=== PATIENT | male | born 1990 | race Caucasian/White ===

== ENCOUNTER 2017-01-19 16:46 | Emergency (ER) | payer MEDICAID ==
[~2017-01-19] VITALS: Ht 167.6 cm; Wt 78.6 kg
[2017-01-19 16:49] VITALS: BP 140/81; PULSE 98; TEMP 97.8
[2017-01-19] MEDS ORDERED: BACTRIM DS 8001 TAB PO (18:24)
[2017-01-19] MEDS ORDERED: NORCO 325 MG-51 TAB PO (18:24)
== END 2017-01-19 19:00 | disposition home or self-care (01) ==
LOC: COL.ER 16:46
DX: L02.612 Cutaneous abscess of left foot (principal); Z23 Encounter for immunization; F17.210 Nicotine dependence, cigarettes, uncomplicated

== ENCOUNTER 2018-03-04 21:27 | Emergency (ER) | payer BC ==
[~2018-03-04] VITALS: Ht 167.6 cm; Wt 73.6 kg
[~2018-03-04 21:27] MED LIST: BACTRIM DS 8001 TAB PO; NORCO 325 MG-51 TAB PO
[2018-03-04 21:35] VITALS: BP 143/80; PULSE 82; TEMP 98.6
[2018-03-04] MEDS ORDERED: FLEXERIL 1010 MG/TAB PO (22:06)
== END 2018-03-04 22:48 | disposition home or self-care (01) ==
LOC: COL.ER 21:27
DX: M46.1 Sacroiliitis, not elsewhere classified (principal); F17.210 Nicotine dependence, cigarettes, uncomplicated
CPT/HCPCS: J1885

== ENCOUNTER 2018-05-04 02:10 | Emergency (ER) | payer MEDICAID ==
[~2018-05-04] VITALS: Ht 170.2 cm; Wt 63.6 kg
[~2018-05-04 02:10] MED LIST changes: +FLEXERIL 1010 MG/TAB PO
[2018-05-04 02:51] LABS: BASO % 0.4 % (0.0-2.0); EOS # 0.8 (0.0-0.7); EOS % 8.5 % (0-4.0); GRAN # 4.2 (1.4-6.5); GRAN % 46.6 % (42.2-75.2); LYMPH # 3.3 (1.2-3.4); LYMPH % 36.4 % (20.0-51.0); MEAN CELL VOLUME 87 fl (80.0-100.0); MEAN CORPUSCULAR HEMOGLOBIN 31 pg (27.0-31.0); MEAN CORPUSCULAR HGB CONC 36 g/dl (33.0-37.0); MEAN PLATELET VOLUME 10.7 fl (7.4-10.4); MONO # 0.7 (0.1-0.6); PLATELET COUNT 262 K/mm3 (130-400); REDCELL DISTRIBUTION WIDTH-CV 12.1 % (11.5-14.5)
[2018-05-04 03:02] LABS: ALBUMIN 4.3 gm/dL (3.5-5.0); BILIRUBIN,TOTAL 0.6 mg/dL (0.0-1.0); CALCIUM 9.4 mg/dL (8.4-10.2); CREATININE, serum 0.88 mg/dL (0.66-1.25); POTASSIUM 3.7 mmol/L (3.4-5.0); TOTAL PROTEIN 7.6 gm/dL (6.4-8.2)
[2018-05-04 05:39] LABS: ACETAMINOPHEN < 10 ug/mL (10-30); SALICYLATE < 1.0 mg/dL
[2018-05-04 06:03] LABS: TSH w REFLEX 0.903 uIU/mL (0.465-4.680)
[2018-05-04 11:32] LABS: COLLECTION METHOD CLEAN CATCH
[2018-05-04 11:48] LABS: MUCOUS Present /lpf; PH 5 (5-8); SQUAMOUS EPITHELIAL 0-2 /hpf; URINE APPEARANCE Clear; URINE BACTERIA None Seen /hpf; URINE BILIRUBIN Negative (NEGATIVE); URINE BLOOD Negative (NEGATIVE); URINE COLOR Yellow; URINE GLUCOSE Negative (NEGATIVE); URINE KETONE Negative (NEGATIVE); URINE LEUKOCYTE ESTERASE Negative (NEGATIVE); URINE NITRATE Negative (NEGATIVE); URINE PROTEIN(semi-quant) Negative (NEGATIVE); URINE RBC None Seen /hpf; URINE UROBILINOGEN Negative (NEGATIVE)
[2018-05-04 11:57] LABS: TRICYCLIC ANTIDEPRESS URINE NEGATIVE
[2018-05-04 17:07] VITALS: BP 90/50; PULSE 83; TEMP 98
== END 2018-05-04 17:08 | disposition home or self-care (01) ==
LOC: COL.ER 02:10
PROVIDERS: Emergency Medicine
DX: F15.10 Other stimulant abuse, uncomplicated (principal); F12.10 Cannabis abuse, uncomplicated; F14.10 Cocaine abuse, uncomplicated; R44.3 Hallucinations, unspecified; F17.210 Nicotine dependence, cigarettes, uncomplicated

== ENCOUNTER 2018-08-31 02:13 | Emergency (ER) | payer SELFPAY ==
[~2018-08-31] VITALS: Ht 167.6 cm; Wt 77.3 kg
[2018-08-31 02:18] VITALS: TEMP 97.1
[2018-08-31 03:22] LABS: BASO # 0.1 (0.0-0.2); BASO % 0.5 % (0.0-2.0); EOS # 1.2 (0.0-0.7); EOS % 9.1 % (0-4.0); GRAN # 7.3 (1.4-6.5); GRAN % 57.1 % (42.2-75.2); HEMATOCRIT 46.9 % (42.0-52.0); LYMPH # 3.4 (1.2-3.4); LYMPH % 26.4 % (20.0-51.0); MEAN CELL VOLUME 88 fl (80.0-100.0); MEAN CORPUSCULAR HEMOGLOBIN 30 pg (27.0-31.0); MEAN CORPUSCULAR HGB CONC 34 g/dl (33.0-37.0); MEAN PLATELET VOLUME 10.4 fl (7.4-10.4); MONO # 0.8 (0.1-0.6); MONO % 6.5 % (1.7-9.3); PLATELET COUNT 257 K/mm3 (130-400); RED BLOOD COUNT 5.32 M/mm3 (4.20-5.60); REDCELL DISTRIBUTION WIDTH-CV 12.3 % (11.5-14.5)
[2018-08-31 06:50] VITALS: BP 100/53; PULSE 86
== END 2018-08-31 06:50 | disposition home or self-care (01) ==
LOC: COL.ER 02:13
PROVIDERS: Nurse Practitioner
DX: S06.0X0A Concussion without loss of consciousness, initial encounter (principal); S02.2XXA Fracture of nasal bones, initial encounter for closed fracture; J45.909 Unspecified asthma, uncomplicated; F10.129 Alcohol abuse with intoxication, unspecified; Y04.0XXA Assault by unarmed brawl or fight, initial encounter

== ENCOUNTER → 2018-10-04 | Emergency (ER) | payer SELFPAY ==
[~2018-10-04] VITALS: Ht 167.6 cm; Wt 66.7 kg
[2018-10-04 22:52] LABS: COLLECTION METHOD CLEAN CATCH
[2018-10-04 22:54] LABS: BASO % 0.5 % (0.0-2.0); EOS # 0.3 (0.0-0.7); EOS % 3.7 % (0-4.0); GRAN # 4.3 (1.4-6.5); GRAN % 52.3 % (42.2-75.2); HEMOGLOBIN 16.2 g/dl (13.5-18.0); LYMPH # 2.8 (1.2-3.4); LYMPH % 34.8 % (20.0-51.0); MEAN CELL VOLUME 88 fl (80.0-100.0); MEAN CORPUSCULAR HEMOGLOBIN 30 pg (27.0-31.0); MEAN CORPUSCULAR HGB CONC 35 g/dl (33.0-37.0); MEAN PLATELET VOLUME 10.4 fl (7.4-10.4); MONO # 0.7 (0.1-0.6); MONO % 8.6 % (1.7-9.3); PLATELET COUNT 237 K/mm3 (130-400); RED BLOOD COUNT 5.37 M/mm3 (4.20-5.60); REDCELL DISTRIBUTION WIDTH-CV 12.2 % (11.5-14.5)
[2018-10-04 23:01] LABS: MUCOUS Present /lpf; PH 5 (5-8); SQUAMOUS EPITHELIAL 0-2 /hpf; URINE APPEARANCE Clear; URINE BACTERIA None Seen /hpf; URINE BILIRUBIN Negative (NEGATIVE); URINE BLOOD Negative (NEGATIVE); URINE COLOR Yellow; URINE GLUCOSE Negative (NEGATIVE); URINE KETONE Trace (NEGATIVE); URINE LEUKOCYTE ESTERASE Negative (NEGATIVE); URINE NITRATE Negative (NEGATIVE); URINE PROTEIN(semi-quant) Negative (NEGATIVE); URINE RBC 0-2 /hpf; URINE UROBILINOGEN Negative (NEGATIVE)
[2018-10-04 23:06] LABS: ALANINE AMINOTRANSFERASE 20 U/L (21-72); ALBUMIN 4.5 gm/dL (3.5-5.0); ALKALINE PHOSPHATASE 70 U/L (50-136); ANION GAP 9 mmol/L (7-16); AST,SGOT 19 U/L (15-37); BLOOD UREA NITROGEN 11 mg/dL (9-20); CALCIUM 9.7 mg/dL (8.4-10.2); CARBON DIOXIDE 27 mmol/L (22-30); CHLORIDE 103 mmol/L (98-107); CREATININE, serum 0.79 mg/dL (0.66-1.25); GLUCOSE 102 mg/dL (74-106); POTASSIUM 3.4 mmol/L (3.4-5.0); SODIUM 139 mmol/L (137-145); TOTAL PROTEIN 7.6 gm/dL (6.4-8.2)
[2018-10-04 23:14] LABS: ACETAMINOPHEN < 10 ug/mL (10-30); ALCOHOL(ethanol),MEDICAL < 10 mg/dL; SALICYLATE < 1.0 mg/dL
[2018-10-04 23:14] LABS: TRICYCLIC ANTIDEPRESS URINE NEGATIVE
[2018-10-04 23:35] LABS: TSH w REFLEX 0.482 uIU/mL (0.465-4.680)
[2018-10-05 21:40] VITALS: BP 106/73; PULSE 85; TEMP 97.5
== END ==
LOC: COL.ER 21:47
PROVIDERS: Nurse Practitioner
DX: F22 Delusional disorders (principal); F15.10 Other stimulant abuse, uncomplicated; J45.909 Unspecified asthma, uncomplicated; F32.9 Major depressive disorder, single episode, unspecified; F17.210 Nicotine dependence, cigarettes, uncomplicated